=== PATIENT | female | born 2000 | race Two or more races ===

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

== ENCOUNTER 2023-04-26 18:41 | Observation (INO) | payer MEDICAID ==
[~2023-04-26 18:41] MED LIST: DOCU-94 PO; PRENTAB40 PO
[2023-04-26 20:51] LABS: Basophils # (auto) 0 10 ^3/uL (0-0.2); Basophils % (auto) 0.1 % (0.0-2.0); Eosinophils # (auto) 0.1 10 ^3/uL (0-0.8); Eosinophils % (auto) 1.4 % (0.0-7.0); Hematocrit 36.7 % (36.0-46.0); Hemoglobin 12.8 g/dL (12.2-16.2); Lymphocytes # (auto) 2.2 10 ^3/uL (0.4-5.4); Lymphocytes % (auto) 23.6 % (10.0-50.0); Mean Corpuscular Hemoglobin 29.2 pg (28.0-32.0); Mean Corpuscular Volume 83.4 fL (80.0-100.0); Monocytes # (auto) 0.9 10 ^3/uL (0-1.3); Monocytes % (auto) 9.4 % (0.0-12.0); Neutrophils # (auto) 6.2 10 ^3/uL (1.6-8.6); Neutrophils % (auto) 65.5 % (37.0-80.0); Red Cell Distribution Width 12.7 % (11.8-14.3); White Blood Cell 9.4 10^3/uL (4.4-10.8)
[2023-04-26 20:52] LABS: Protein, Urine 16.8 mg/dL (0.0-11.9)
[2023-04-26 20:54] LABS: Amphetamine Screen, Urine Neg (NEGATIVE); Barbiturate Scree,Urine Neg (NEGATIVE); Benzodiazephine Screen, Urine Neg (NEGATIVE); Cocaine Screen, Urine Neg (NEGATIVE); Creatinine, Urine 115.37 mg/dL (30.0-125.0); Opiate Scree,Urine Neg (NEGATIVE); Phencyclidine Screen, Urine Neg (NEGATIVE); Urine Protein/Creatinine Ratio 0.15
[2023-04-26 20:55] LABS: Cannabinoid Screen, Urine Pos (NEGATIVE)
[2023-04-26 20:57] LABS: Chloride 108 mmol/L (98-107); Potassium 3.6 mmol/L (3.5-5.1); Sodium 139 mmol/L (136-145)
[2023-04-26 21:03] LABS: Urine Bacteria FEW /hpf (None Seen); Urine Blood Negative /uL (Negative); Urine Clarity Clear (Clear); Urine Color Yellow (Yellow); Urine Mucus FEW (None Seen); Urine Protein, UAD TRACE (Negative); Urine Specific Gravity 1.018 (1.001-1.035); Urine Urobilinogen Normal (Negative); Urine WBC 1 /hpf (0 - 5)
[2023-04-26 21:09] LABS: INR 0.98 (0.9-1.15); Prothrombin Time 10.3 sec (9.3-11.8)
[2023-04-26 21:15] LABS: Uric Acid 3.6 mg/dL (3.1-7.8)
[2023-04-26 21:18] LABS: Alanine Aminotransferase < 9 U/L (7-40); Alkaline Phosphatase 127 U/L (46-116); Anion Gap 8 (5-15); Aspartate Aminotransferase 16 U/L (13-40); Blood Urea Nitrogen < 5 mg/dL (9-23); Carbon Dioxide 23 mmol/L (20-30); Glucose 78 mg/dL (74-106)
[2023-04-26 21:19] LABS: Albumin 3.9 g/dL (3.2-4.8); BUN/Creatinine Ratio 9.6 (10.0-20.0); Bilirubin, Total 0.5 mg/dL (0.2-1.0); Calcium 8.7 mg/dL (8.5-10.1); Total Protein 6.8 g/dL (5.7-8.2)
[2023-04-26] MEDS ORDERED: ASPI1TAB20 PO ×2 (21:32)
[2023-04-26] MEDS ORDERED: ASPI-498 PO (22:01)
== END 2023-04-26 21:42 | disposition home or self-care (01) ==
LOC: LDRP 18:41
PROVIDERS: ADMIT Obstetrics & Gynecology; ATTEND Obstetrics & Gynecology
DX: O99.353 Diseases of the nervous system complicating pregnancy, third trimester (principal); G43.909 Migraine, unspecified, not intractable, without status migrainosus; O09.293 Supervision of pregnancy with other poor reproductive or obstetric history, third trimester; O99.323 Drug use complicating pregnancy, third trimester; F12.90 Cannabis use, unspecified, uncomplicated; Z3A.30 30 weeks gestation of pregnancy; Z87.891 Personal history of nicotine dependence
CPT/HCPCS: 36415; 80053; 80307; 81001; 82570; 84156; 84550; 85025; 85610; 85730; G0378; 59025; 81002; 94760

== ENCOUNTER 2024-01-03 06:25 | Day surgery (SDC) | payer MEDICAID ==
[2024-01-01 12:05] LABS: Basophils # (auto) 0.1 10 ^3/uL (0-0.2); Basophils % (auto) 0.7 % (0.0-2.0); Eosinophils # (auto) 0.1 10 ^3/uL (0-0.8); Eosinophils % (auto) 1.1 % (0.0-7.0); Hemoglobin 12.9 g/dL (12.2-16.2); Lymphocytes # (auto) 2.3 10 ^3/uL (0.4-5.4); Lymphocytes % (auto) 21.2 % (10.0-50.0); Mean Corpuscular Hemoglobin 28.1 pg (28.0-32.0); Mean Corpuscular Hgb Conc. 34.1 g/dL (32.0-36.0); Mean Corpuscular Volume 82.4 fL (80.0-100.0); Monocytes # (auto) 0.8 10 ^3/uL (0-1.3); Neutrophils # (auto) 7.7 10 ^3/uL (1.6-8.6); Red Blood Cells 4.61 10^6/uL (4.0-5.20); Red Cell Distribution Width 13.9 % (11.8-14.3)
[2024-01-01 12:06] LABS: Urine Bacteria FEW /hpf (None Seen); Urine Blood 3+ /uL (Negative); Urine Clarity Turbid (Clear); Urine Color Yellow (Yellow); Urine Mucus FEW (None Seen); Urine Protein, UAD 2+ (Negative); Urine Specific Gravity 1.036 (1.001-1.035); Urine Urobilinogen Normal (Negative); Urine WBC 10 /hpf (0 - 5)
[2024-01-01 12:18] LABS: INR 1.05 (0.9-1.15); Partial Thromboplastin Time 26.8 SEC (24.5-34.5); Prothrombin Time 11.1 sec (9.3-11.8)
[2024-01-01 12:46] LABS: Alanine Aminotransferase 10 U/L (7-40); Albumin 3.9 g/dL (3.2-4.8); Alkaline Phosphatase 114 U/L (46-116); Anion Gap 6 (5-15); Aspartate Aminotransferase 18 U/L (13-40); BUN/Creatinine Ratio 11.4 (10.0-20.0); Bilirubin, Total 0.5 mg/dL (0.2-1.0); Blood Urea Nitrogen 8 mg/dL (9-23); Calcium 9.7 mg/dL (8.5-10.1); Carbon Dioxide 28 mmol/L (20-30); Chloride 108 mmol/L (98-107); Glucose 91 mg/dL (74-106); Potassium 3.9 mmol/L (3.5-5.1); Sodium 142 mmol/L (136-145); Total Protein 7.6 g/dL (5.7-8.2)
[~2024-01-03] VITALS: Ht 160 cm; Wt 72.6 kg
[2024-01-03] MEDS ORDERED: SUCCINYLCHOLINE CHLORIDE 20 MG/ML 10ML VIAL IV ONE (06:53)
[2024-01-03] MEDS ORDERED: fentaNYL CITRATE 100 MCG/2 ML VL ONE (06:56)
[2024-01-03] MEDS ORDERED: PROPOFOL 10 MG/ML 20 ML IV ONE (06:57)
[2024-01-03] MEDS ORDERED: METHYLENE BLUE 0.5% 5MG/ML 10ml AMP IV ONE (07:03)
[2024-01-03] MEDS ORDERED: HYDR-4902 PO (07:14)
[2024-01-03] MEDS ORDERED: ceFAZolin 1GM/50ML 50 ML IV ONE ×2 (07:14→07:24)
[2024-01-03] MEDS ORDERED: ROCURONIUM 10MG/ML 10ML VIAL IV ONE (07:32)
[2024-01-03] MEDS ORDERED: ONDANSETRON HCL 4 MG/2 ML VIAL ONE (07:43)
[2024-01-03] MEDS ORDERED: DexAMETHasone SOD PHOS 10MG/1ML VIAL INJ ONE (07:43)
[2024-01-03] MEDS ORDERED: SUGAMMADEX 200mg/2ml Vial (100MG/ML) IV ONE (07:58)
[2024-01-03] MEDS ORDERED: MEPERIDINE HCL (25 MG/ML) 1ML VIAL ONE (08:11)
[2024-01-03] MEDS: LIDOCAINE W/ EPINEPHRINE 1% 20ML VIAL ONE (08:13)
[2024-01-03 08:21] VITALS: PULSE 101; RESP 16; O2SAT 100
[2024-01-03] MEDS ORDERED: MEPERIDINE HCL (25 MG/ML) 1ML VIAL IV PRN (08:30)
[2024-01-03] MEDS: HYDROmorphone HCL 2 MG/ML VL/or syr IV PRN (08:47)
[2024-01-03 09:36] VITALS: BP 112/62; PULSE 89; RESP 12; O2SAT 98
[2024-01-03] MEDS: ONDANSETRON HCL 4 MG/2 ML VIAL IV ONE (09:40)
== END 2024-01-03 09:51 | disposition home or self-care (01) ==
LOC: SUR 06:25
PROVIDERS: ATTEND Obstetrics & Gynecology
DX: Z30.2 Encounter for sterilization (principal); I10 Essential (primary) hypertension; E03.9 Hypothyroidism, unspecified; Z87.891 Personal history of nicotine dependence
CPT/HCPCS: 36415; 58615; 80053; 81001; 81025; 84702; 85025; 85610; 85730; 86850; 86900; 86901; A4264; J0330; J0690; J1100; J1170; J2175; J2405; J2704; J3010

== ENCOUNTER 2025-04-08 14:24 | Outpatient (CLI) | payer MEDICAID ==
[~2025-04-08 14:24] MED LIST changes: -DOCU-94 PO; +HYDR-4902 PO; -PRENTAB40 PO
== END 2025-04-08 17:00 | disposition home or self-care (01) ==
LOC: LAB 14:24
DX: N39.0 Urinary tract infection, site not specified (principal)
CPT/HCPCS: 87086